=== PATIENT | female | born 1980 | race Caucasian/White ===

== ENCOUNTER 2016-06-17 17:05 | Emergency (ER) | payer BC ==
[2016-06-17 17:16] VITALS: BP 118/91
[2016-06-17] MEDS ORDERED: Sodium Chloride 0.9% 10 ML Syringe FLUSH PRN (17:49)
[2016-06-17] MEDS ORDERED: Ketorolac 30 MG/ML SDV IVPUSH ONE (17:51)
[2016-06-17] MEDS ORDERED: Sodium Chloride 0.9% 1,000 ML IV ONE (17:51)
[2016-06-17] MEDS ORDERED: Ondansetron 4 MG/2 ML SDV IVPUSH ONE (17:52)
--- NOTE | 2016-06-17 18:09 | EDM.PDOC ---
ED HPI RENAL/ - General Chief Complaint: Abdominal Pain Stated Complaint: ABD PAIN Time Seen by Provider: 06/17/16 17:37 Source of Information: Reports: Patient History Limitations: Reports: No limitations - History of Present Illness INITIAL COMMENTS - FREE TEXT/NARRATIVE: Presents for evaluation and treatments of dysuria and hematuria. Patient reports that she has been experiencing dysuria for the last week. She states that she has not been able to get in to be seen for this. She reports today she developed lower abdominal cramping across her lower abdomen. Patient reports associated symptoms of low back pain, pruritus, malaise, abdominal bloating, hematuria, chills and nausea. Patient reports that the abdominal pain comes and goes. She states that right now as an 8/10. At Its worst it is 10 out of 10. She is not taking anything for the pain. Patient reports that she has been straining her urine since 2 PM. She has had any kidney stones in the past. Reports her symptoms today feel similar. Denies any fevers, vomiting or abnormal vaginal discharge. Patient reports that her last bowel movement was today. She denies melena any or hematochezia. She reports her last menstrual period was June 07, 2016. Location: Reports: RLQ, LLQ Quality: Reports: cramping Associated Symptoms: Reports: dysuria, blood in urine, abdominal pain, nausea/ vomiting. Denies: vaginal discharge, constipation, diarrhea, bloody stools - Related Data Allergies/ADRs: Allergies Allergy/AdvReac Type Severity Reaction Status Date / Time No Known Allergies Allergy Verified 06/17/16 17:16 Home Meds: Home Meds Hydrochlorothiazide [Hydrochlorothiazide] 12.5 mg PO DAILY 06/17/16 [History] Magnesium Chloride [Mag-64] 0 mg PO BID 06/17/16 [History] Magnesium Citrate [Citroma] 296 ml PO ASDIRECTED #1 bottle 06/17/16 [Rx] Potassium Citrate [Potassium Citrate] 1,080 mg PO BID 06/17/16 [History] Triamcinolone Acetonide [Kenalog 0.1% Crm] 1 applic TOP ASDIRECTED PRN 06/17/16 [History] Past Medical History - Past Health History Medical/Surgical History: Denies Medical/Surgical History Genitourinary History: Reports: Renal calculus - Past Surgical History HEENT Surgical History: Reports: Adenoidectomy, Tonsillectomy GI Surgical History: Reports: Hernia, abdominal Female Surgical History: Reports: section Social & Family History - Family History Family Medical History: Noncontributory - Tobacco Use Smoking Status *Q: Never Smoker ED ROS GENERAL - Review of Systems Review Of Systems: See Below Constitutional: Reports: chills, malaise. Denies: fever GI/Abdominal: Reports: Abdominal pain (lower abdominal cramping), Nausea, Other (reports abdominal bloating). Denies: Constipation, Diarrhea, Hematochezia, Melena, Vomiting : Reports: dysuria, hematuria Musculoskeletal: Reports: back pain (lower back right ) Skin: Reports: pruritis Neurological: Reports: Dizziness ED EXAM, RENAL/ - Physical Exam Exam: See Below Exam Limited By: No limitations General Appearance: alert, WD/WN, no apparent distress Respiratory/Chest: no respiratory distress, lungs clear, normal breath sounds Cardiovascular: normal peripheral pulses, regular rate, rhythm, no murmur GI/Abdominal: normal bowel sounds, soft, tender (right and left lower quadrants ), other (negative psoas and obturator signs) Back Exam: normal inspection, CVA tenderness (R) Neurological: alert, oriented, normal cognition Psychiatric: normal affect, normal mood Skin Exam: Warm, Dry Course - Vital Signs Last Recorded V/S: Last Vital Signs Temp 36.6 C 06/17/16 17:13 Pulse 90 06/17/16 17:13 Resp 18 06/17/16 17:13 BP 118/91 H 06/17/16 17:13 Pulse Ox 100 06/17/16 17:13 Orthostatic Blood Pressure [ 115/82 Standing] Orthostatic Blood Pressure [ 110/83 Sitting] Orthostatic Blood Pressure [ 113/81 Supine] - Orders/Labs/Meds Labs: Laboratory Tests 06/17/16 06/17/16 06/17/16 Range/Units 17:20 17:20 18:28 WBC 11.31 H (3.98-10.04) K/mm3 RBC 4.68 (3.98-5.22) M/mm3 Hgb 13.4 (11.2-15.7) gm/L Hct 39.8 (34.1-44.9) % MCV 85.0 (79.4-94.8) fl MCH 28.6 (25.6-32.2) pg MCHC 33.7 (32.2-35.5) g/dl RDW Std Deviation 40.8 (36.4-46.3) fL Plt Count 276 (182-369) K/mm3 MPV 10.4 (9.4-12.3) fl Neut % (Auto) 69.6 (34.0-71.1) % Lymph % (Auto) 19.5 (19.3-51.7) % Menard % (Auto) 8.0 (4.7-12.5) % Eos % (Auto) 2.3 (0.7-5.8) Baso % (Auto) 0.4 (0.1-1.2) % Neut # (Auto) 7.87 H (1.56-6.13) K/mm3 Lymph # (Auto) 2.21 (1.18-3.74) K/mm3 Menard # (Auto) 0.91 H (0.24-0.36) K/mm3 Eos # (Auto) 0.26 (0.04-0.36) K/mm3 Baso # (Auto) 0.04 (0.01-0.08) K/mm3 Sodium (136-145) mEq/L Potassium (3.5-5.1) mEq/L Chloride (98-107) mEq/L Carbon Dioxide (21-32) mEq/L Anion Gap (5-15) BUN (7-18) mg/dL Creatinine (0.55-1.02) mg/dL Est Cr Clr Drug Dosing mL/min Estimated GFR (MDRD) (>60) mL/min BUN/Creatinine Ratio (14-18) Glucose (74-106) mg/dL Calcium (8.5-10.1) mg/dL Total Bilirubin (0.2-1.0) mg/dL AST (15-37) U/L ALT (14-59) U/L Alkaline Phosphatase (46-116) U/L C-Reactive Protein (<1.0) mg/dL Total Protein (6.4-8.2) g/dl Albumin (3.4-5.0) g/dl Globulin gm/dL Albumin/Globulin Ratio (1-2) Urine Color Colorless L (Yellow) Urine Appearance Clear (Clear) Urine pH 6.5 (5.0-8.0) Ur Specific [place] 1.010 (1.005-1.030) Urine Protein Negative (Negative) Urine Glucose (UA) Negative (Negative) Urine Ketones Negative (Negative) Urine Occult Blood Negative (Negative) Urine Nitrite Negative (Negative) Urine Bilirubin Negative (Negative) Urine Urobilinogen 0.2 (0.2-1.0) Ur Leukocyte Esterase Negative (Negative) Urine RBC Not seen (0-5) /hpf Urine WBC Not seen (0-5) /hpf Ur Epithelial Cells Not Reportable Ur Squamous Epith Cells 0-5 (0-5) /hpf Urine Bacteria Rare (FEW) /hpf Urine Mucus Not seen (FEW) /hpf Urine HCG, Qual Negative (NEGATIVE) 06/17/16 Range/Units 18:28 WBC (3.98-10.04) K/mm3 RBC (3.98-5.22) M/mm3 Hgb (11.2-15.7) gm/L Hct (34.1-44.9) % MCV (79.4-94.8) fl MCH (25.6-32.2) pg MCHC (32.2-35.5) g/dl RDW Std Deviation (36.4-46.3) fL Plt Count (182-369) K/mm3 MPV (9.4-12.3) fl Neut % (Auto) (34.0-71.1) % Lymph % (Auto) (19.3-51.7) % Menard % (Auto) (4.7-12.5) % Eos % (Auto) (0.7-5.8) Baso % (Auto) (0.1-1.2) % Neut # (Auto) (1.56-6.13) K/mm3 Lymph # (Auto) (1.18-3.74) K/mm3 Menard # (Auto) (0.24-0.36) K/mm3 Eos # (Auto) (0.04-0.36) K/mm3 Baso # (Auto) (0.01-0.08) K/mm3 Sodium 134 L (136-145) mEq/L Potassium 3.6 (3.5-5.1) mEq/L Chloride 99 (98-107) mEq/L Carbon Dioxide 27 (21-32) mEq/L Anion Gap 11.6 (5-15) BUN 12 (7-18) mg/dL Creatinine 0.8 (0.55-1.02) mg/dL Est Cr Clr Drug Dosing 91.88 mL/min Estimated GFR (MDRD) > 60 (>60) mL/min BUN/Creatinine Ratio 15.0 (14-18) Glucose 99 (74-106) mg/dL Calcium 8.3 L (8.5-10.1) mg/dL Total Bilirubin 0.7 (0.2-1.0) mg/dL AST 15 (15-37) U/L ALT 40 (14-59) U/L Alkaline Phosphatase 66 (46-116) U/L C-Reactive Protein < 0.2 (<1.0) mg/dL Total Protein 7.2 (6.4-8.2) g/dl Albumin 3.8 (3.4-5.0) g/dl Globulin 3.4 gm/dL Albumin/Globulin Ratio 1.1 (1-2) Urine Color (Yellow) Urine Appearance (Clear) Urine pH (5.0-8.0) Ur Specific [place] (1.005-1.030) Urine Protein (Negative) Urine Glucose (UA) (Negative) Urine Ketones (Negative) Urine Occult Blood (Negative) Urine Nitrite (Negative) Urine Bilirubin (Negative) Urine Urobilinogen (0.2-1.0) Ur Leukocyte Esterase (Negative) Urine RBC (0-5) /hpf Urine WBC (0-5) /hpf Ur Epithelial Cells Ur Squamous Epith Cells (0-5) /hpf Urine Bacteria (FEW) /hpf Urine Mucus (FEW) /hpf Urine HCG, Qual (NEGATIVE) Meds: Medications Discontinued Medications Generic Name Dose Route Start Last Admin Trade Name Freq PRN Reason Stop Dose Admin Sodium Chloride 1,000 mls @ 999 mls/hr 06/17/16 17:51 06/17/16 18:35 Normal Saline IV 06/17/16 18:51 999 mls/hr ONETIME ONE Administration Ketorolac Tromethamine 30 mg 06/17/16 17:51 06/17/16 18:32 Toradol IVPUSH 06/17/16 17:52 30 mg ONETIME ONE Administration Ondansetron HCl 4 mg 06/17/16 17:52 06/17/16 18:27 Zofran IVPUSH 06/17/16 17:53 4 mg ONETIME ONE Administration Sodium Chloride 10 ml 06/17/16 17:49 06/17/16 18:25 Saline Flush FLUSH 10 ml ASDIRECTED PRN Administration Keep Vein Open - Radiology Interpretation Free Text/Narrative:: Ct of the abdomen and pelvis without contrast impression per Dr. Luna 1. Slight increased stool within the colon. 2. Several small nonobstructing calculi within both kidneys, more numerous on the right side. 3. No ureteral dilation artery also is seen. 4. Nothing acute is identified on noncontrast CT of the abdomen and pelvis. CT Results Date: 06/17/16 - Re-Assessments/Exams Free Text/Narrative Re-Assessment/Exam: 06/17/16 20:02 Labs returned. White blood cell count of 11.3 hgb is 13.4 and platelets are 276. CRP is less than 0.2. HCG is negative. Sodium was 134, potassium 3.6 and chloride is 99. Anion gap is 11.6. UA is negative for leukocytes, nitrites, glucose, ketones and blood. I reviewed the labs and imaging with the patient. Will treat her constipation with a bottle of citroma. Followup with your primary care provider if her symptoms persist after the Citroma. Will discharge home. Discharge instructions as documented. Departure - Departure Time of Disposition: 20:09 Disposition: Home, Self-Care 01 Condition: good Clinical Impression: Constipation Prescriptions: Magnesium Citrate [Citroma] 296 ml PO ASDIRECTED #1 bottle Instructions: Constipation, Adult Referrals: Blake Johnson MD [Primary Care Provider] - Forms: ED Department Discharge Additional Instructions: Drink plenty of fluids. OTC tylenol or motrin as needed for pain. Tomorrow, drink one bottle of mag citrate over 1-2 hours for a bowel clean out. May start miralax daily to every other day as needed for bowel maintenance. You should have 1-3 bowel movements every day to every 3 days. Follow-up with PCP if not better this week. Please return to the ER should your symptoms change or worsen.
--- NOTE | 2016-06-17 18:59 | CT ---
CT abdomen and pelvis Technique: Multiple axial sections were obtained from above the dome of the diaphragm inferiorly through the pubic symphysis. Intravenous and oral contrast was not utilized. Study performed as a ureteral stone protocol. Findings: Visualized lung bases are clear. Noncontrast appearance of the liver and spleen appears within normal limits. Multiple small nonobstructing calculi are seen within the right kidney. Left kidney shows several minimal nonobstructing calculi. No ureteral dilatation or ureteral stone is identified. Adrenal glands show no nodule. Pancreas appears within normal limits. Gallbladder shows no gallstones. Aorta shows no aneurysmal dilatation. No retroperitoneal adenopathy or mesenteric abnormalities are seen. Mild increased stool is seen within the colon. Appendix is only equivocally seen but no inflammatory change is seen within the right lower abdomen. No free fluid is seen. No bowel dilatation is seen. Impression: 1. Slight increased stool within the colon. 2. Several small nonobstructing calculi within both kidneys, more numerous on the right side. 3. No ureteral dilatation or ureteral stone is seen. 4. Nothing acute is identified on noncontrast CT study of the abdomen and pelvis. Diagnostic code #2
== END 2016-06-17 20:15 | disposition home or self-care (01) ==
LOC: JD.ED 17:05
DX: K59.00 Constipation, unspecified (principal); Z98.890 Other specified postprocedural states; Z79.899 Other long term (current) drug therapy
CPT/HCPCS: 36415; 74176; 80053; 81001; 81025; 85025; 86140; 96361; 96374; 96375; 99284; J1885; J2405; J7040; J7050

== ENCOUNTER 2020-09-02 19:39 | Emergency (ER) | payer BC ==
[2020-09-02 19:48] VITALS: BP 130/74; PULSE 93
[2020-09-02] MEDS ORDERED: Meclizine 12.5 MG Tab PO ONE (20:26)
[2020-09-02] MEDS ORDERED: Amoxicillin 500 MG Cap PO ONE (20:26)
--- NOTE | 2020-09-02 20:39 | EDM.PDOC ---
ED HPI GENERAL MEDICAL PROBLEM - General Chief Complaint: ENT Problem Stated Complaint: VIRTICAL, MAY HAVE EAR INFECTION ALSO Time Seen by Provider: 09/02/20 20:09 Source of Information: Reports: Patient, RN Notes Reviewed - History of Present Illness INITIAL COMMENTS - FREE TEXT/NARRATIVE: Has been having some R ear pressure discomfort for many days worse today. Has had some vertigo off and on for quite awhile also worse today. Did have some mild nausea, gone, no vomiting. Did get real lightheaded also this evening but that also did resolve. Mild nasal and sins pancho. Hx of what sounds like mild seasonal allergies. Has not been otherwise recently ill. 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: Reports: Musculoskeletal History: Reports: Other (See Below) Other Musculoskeletal History: r wrist surgery, varicous veins Psychiatric History: Reports: Anxiety - Past Surgical History HEENT Surgical History: Reports: Adenoidectomy, Tonsillectomy GI Surgical History: Reports: Hernia, Abdominal Female Surgical History: Reports: Breast Reduction, Section, Other (See Below) Other Female Surgeries/Procedures: tummy tuck Social & Family History - Family History Family Medical History: No Pertinent Family History - Tobacco Use Tobacco Use Status *Q: Never Tobacco User Second Hand Smoke Exposure: No - Caffeine Use Caffeine Use: Reports: Coffee - Recreational Drug Use Recreational Drug Use: No ED ROS ENT - Review of Systems Review Of Systems: See Below Constitutional: Denies: Fever, Chills, Diaphoresis HEENT: Reports: Ear Pain. Denies: Ear Discharge, Throat Pain Respiratory: Denies: Cough Cardiovascular: Denies: Chest Pain GI/Abdominal: Reports: Nausea. Denies: Abdominal Pain, Vomiting Musculoskeletal: Reports: No Symptoms Neurological: Reports: Dizziness ED EXAM, ENT - Physical Exam Exam: See Below General Appearance: Alert, No Apparent Distress Eye Exam: Bilateral Eye: PERRL, Other (no nystagmus at time of exam) Ears: Normal External Exam, Normal Canal, TM Bulging, TM Fluid (bilat R greater than L) Nose: Normal Inspection Mouth/Throat: Normal Inspection Head: Atraumatic Neck: Supple, Full Range of Motion Respiratory/Chest: No Respiratory Distress, Lungs Clear, Normal Breath Sounds Cardiovascular: Regular Rate, Rhythm Neurological: Alert, Oriented, No Motor/Sensory Deficits Skin: Warm, Dry, Normal Color Course - Vital Signs Last Recorded V/S: Last Vital Signs Temp 98.0 F 09/02/20 19:47 Pulse 93 09/02/20 19:47 Resp 18 09/02/20 19:47 BP 130/74 09/02/20 19:47 Pulse Ox 100 09/02/20 19:47 - Orders/Labs/Meds Meds: Medications Discontinued Medications Generic Name Dose Route Start Last Admin Trade Name Laloq PRN Reason Stop Dose Admin Amoxicillin 500 mg 09/02/20 20:26 09/02/20 20:33 Amoxicillin 500 Mg Cap PO 09/02/20 20:27 500 mg ONETIME ONE Administration Meclizine HCl 12.5 mg 09/02/20 20:26 09/02/20 20:33 Meclizine 12.5 Mg Tab PO 09/02/20 20:27 12.5 mg ONETIME ONE Administration Departure - Departure Time of Disposition: 20:35 Disposition: Home, Self-Care 01 Condition: Fair Clinical Impression: Vertigo Serous otitis media Qualifiers: Chronicity: acute Laterality: right Recurrence: not specified as recurrent Qualified Code(s): H65.01 - Acute serous otitis media, right ear - Discharge Information Prescriptions: Amoxicillin 500 mg PO Q8HR #20 capsule Instructions: Vertigo, [id number], Otitis Media, Adult, [id number] Referrals: Balke Johnson MD [Primary Care Provider] - Forms: ED Department Discharge Additional Instructions: Amoxicillin 500 mg 3 times daily. [facility] so you can pick that up in the morning. Antivert (meclizine) 12.5 mg twice daily until vertigo resolves. You can buy that OTC but will need to ask pharmacist for that. Claritin 10 mg daily. See your regular medical provider in about 1 week. Return to ED as needed if symptoms worsening in any way. Sepsis Event Note (ED) - Evaluation Sepsis Screening Result: No Definite Risk - Focused Exam Vital Signs: Vital Signs Temp Pulse Resp BP Pulse Ox 09/02/20 19:47 98.0 F 93 18 130/74 100
== END 2020-09-02 20:50 | disposition home or self-care (01) ==
LOC: JD.ED 19:39
DX: R42 Dizziness and giddiness (principal); H65.01 Acute serous otitis media, right ear
CPT/HCPCS: 99283; A9270

== ENCOUNTER 2021-07-13 03:26 | Emergency (ER) | payer BC ==
[2021-07-13 04:00] VITALS: BP 135/96; PULSE 105
[2021-07-13] MEDS ORDERED: Ketorolac 15 MG/ML SDV IVPUSH ONE (04:11)
[2021-07-13] MEDS ORDERED: Sodium Chloride 0.9% 1,000 ML IV ONE (04:38)
== END 2021-07-13 06:02 | disposition home or self-care (01) ==
LOC: JD.ED 03:26
DX: N20.0 Calculus of kidney (principal)
CPT/HCPCS: 36415; 80053; 81001; 83690; 85025; 96374; 99284; J1885; J7030

== ENCOUNTER 2021-07-19 12:42 | Emergency (ER) | payer BC ==
[2021-07-19] MEDS ORDERED: Sodium Chloride 0.9% 10 ML Syringe FLUSH PRN ×2 (14:37→17:39)
[2021-07-19] MEDS ORDERED: Sodium Chloride 0.9% 1,000 ML IV STA (15:01)
[2021-07-19] MEDS ORDERED: Iopamidol 612 MG/ML 100 ML Bottle IVPUSH ONE (17:39)
[2021-07-19 18:56] VITALS: BP 102/78; PULSE 88
== END 2021-07-19 18:56 | disposition home or self-care (01) ==
LOC: JD.ED 12:42
DX: R10.11 Right upper quadrant pain (principal); R10.13 Epigastric pain
CPT/HCPCS: 36415; 74177; 76705; 80053; 81001; 82977; 83690; 84703; 85025; 86140; 99284; J3490; J7030; Q9967

== ENCOUNTER 2022-12-25 19:27 | Emergency (ER) | payer BC ==
[2022-12-25 20:35] LABS: BASOPHILS ABSOLUTE AUTO 0.1 K/mm3 (0.0-0.2); BASOPHILS PERCENT AUTO 0.6 % (0.0-1.0); EOSINOPHILS ABSOLUTE AUTO 0.2 K/mm3 (0.0-0.4); EOSINOPHILS PERCENT AUTO 2.4 % (0.0-6.0); HEMATOCRIT 42.2 % (37.0-47.0); IMMATURE GRAN ABSOLUTE AUTO 0.04 K/mm3 (0.00-0.05); IMMATURE GRAN PERCENT AUTO 0.4 % (0.0-0.4); LYMPHOCYTES ABSOLUTE AUTO 2.1 K/mm3 (1.0-4.8); LYMPHOCYTES PERCENT AUTO 22.6 % (24.0-44.0); MEAN CORPUSCULAR HEMOGLOBIN 28.5 pg (28.0-32.0); MEAN CORPUSCULAR HGB CONC 33.2 g/dl (32.0-36.0); MEAN CORPUSCULAR VOLUME 85.8 fl (83.0-99.0); MEAN PLATELET VOLUME 10.2 fl (9.4-12.3); MONOCYTES ABSOLUTE AUTO 0.7 K/mm3 (0.0-0.8); MONOCYTES PERCENT AUTO 7.3 % (0.0-8.0); NEUTROPHILS ABSOLUTE AUTO 6.3 K/mm3 (1.8-7.7); NEUTROPHILS PERCENT AUTO 66.7 % (41.0-71.0); PLATELET COUNT,PLT 320 K/mm3 (150-400); RED BLOOD CELL COUNT 4.92 M/mm3 (4.10-5.30); WHITE BLOOD CELL COUNT,WBC 9.43 K/mm3 (3.9-11.3)
[2022-12-25 21:04] LABS: ALBUMIN 3.7 g/dl (3.4-5.0); ANION GAP 14.5 (5-15); BILIRUBIN TOTAL 0.8 mg/dL (0.2-1.0); EST CRCL DRUG DOSING (CG) 68.61 mL/min; POTASSIUM,K 3.5 mEq/L (3.5-5.1); PROTEIN TOTAL,TP 7.3 g/dl (6.4-8.2)
[2022-12-25 21:18] LABS: APPEARANCE,URINE CLEAR (Clear); BILIRUBIN,URINE NEGATIVE (Negative); COLOR,URINE YELLOW (Yellow); GLUCOSE,URINE NEGATIVE (Negative); KETONES,URINE NEGATIVE (Negative); LEUKOCYTE ESTERASE,URINE NEGATIVE (Negative); NITRITE,URINE NEGATIVE (Negative); OCCULT BLOOD,URINE NEGATIVE (Negative); PH,URINE 5.5 (5.0-8.0); PROTEIN,URINE 1+ (Negative); UROBILINOGEN,URINE 0.2 (0.2-1.0)
[2022-12-25 21:40] LABS: BACTERIA,URINE MANY /hpf (FEW); CALCIUM OXALATE CRYSTALS,URINE RARE; MUCUS,URINE MANY /hpf (FEW); RBC,URINE 0-5 /hpf (0-5); WBC,URINE 0-5 /hpf (0-5)
[2022-12-25] MEDS ORDERED: Morphine 2 MG/ML SYRINGE IVPUSH ONE (22:00)
[2022-12-25 22:25] LABS: CORONAVIRUS COVID-19 NAA NEGATIVE (NEGATIVE); INFLUENZA A NAA NEGATIVE (NEGATIVE); RESPIRATORY SYNCYTIAL VIR NAA NEGATIVE (NEGATIVE)
== END 2022-12-25 22:35 | disposition home or self-care (01) ==
LOC: MERGE 19:27 → JD.ED 19:27
DX: R10.30 Lower abdominal pain, unspecified (principal); Z91.041 Radiographic dye allergy status; Z91.09 Other allergy status, other than to drugs and biological substances; Z20.822 Contact with and (suspected) exposure to COVID-19
CPT/HCPCS: 0241U; 36415; 76705; 80053; 81001; 84484; 84703; 85025; 96374; 99284; J2270

== ENCOUNTER 2023-03-11 23:46 | Emergency (ER) | payer BC ==
[2023-03-12] MEDS ORDERED: Sodium Chloride 0.9% 10 ML Syringe FLUSH PRN (00:20)
[2023-03-12 00:33] LABS: BASOPHILS ABSOLUTE AUTO 0.1 K/mm3 (0.0-0.2); BASOPHILS PERCENT AUTO 0.6 % (0.0-1.0); EOSINOPHILS ABSOLUTE AUTO 0.4 K/mm3 (0.0-0.4); EOSINOPHILS PERCENT AUTO 3.9 % (0.0-6.0); HEMATOCRIT 45.1 % (37.0-47.0); IMMATURE GRAN ABSOLUTE AUTO 0.04 K/mm3 (0.00-0.05); IMMATURE GRAN PERCENT AUTO 0.4 % (0.0-0.4); LYMPHOCYTES ABSOLUTE AUTO 3.2 K/mm3 (1.0-4.8); LYMPHOCYTES PERCENT AUTO 28.6 % (24.0-44.0); MEAN CORPUSCULAR HEMOGLOBIN 28.7 pg (28.0-32.0); MEAN CORPUSCULAR HGB CONC 33.3 g/dl (32.0-36.0); MEAN CORPUSCULAR VOLUME 86.2 fl (83.0-99.0); MONOCYTES ABSOLUTE AUTO 0.9 K/mm3 (0.0-0.8); MONOCYTES PERCENT AUTO 8.1 % (0.0-8.0); NEUTROPHILS ABSOLUTE AUTO 6.5 K/mm3 (1.8-7.7); NEUTROPHILS PERCENT AUTO 58.4 % (41.0-71.0); PLATELET COUNT,PLT 330 K/mm3 (150-400); RED BLOOD CELL COUNT 5.23 M/mm3 (4.10-5.30); WHITE BLOOD CELL COUNT,WBC 11.09 K/mm3 (3.9-11.3)
[2023-03-12 01:02] LABS: A/G RATIO 0.9 (1-2); ALANINE AMINOTRANSFERASE,ALT 14 U/L (14-59); ALBUMIN 3.8 g/dl (3.4-5.0); ALKALINE PHOSPHATASE 77 U/L (46-116); ASPARTATE AMNIOTRANSFERASE,AST 13 U/L (15-37); BILIRUBIN TOTAL 0.5 mg/dL (0.2-1.0); BLOOD UREA NITROGEN,BUN 18 mg/dL (7-18); BUN/CREATININE RATIO 13.8 (14-18); CARBON DIOXIDE,CO2 28 mEq/L (21-32); CHLORIDE,CL 101 mEq/L (98-107); CREATININE 1.3 mg/dL (0.55-1.02); ESTIMATED GFR 53 mL/min (>60); GLUCOSE RANDOM 109 mg/dL (70-99); PROTEIN TOTAL,TP 7.9 g/dl (6.4-8.2); SODIUM,NA 139 mEq/L (136-145)
[2023-03-12 01:11] LABS: APPEARANCE,URINE CLEAR (Clear); BILIRUBIN,URINE NEGATIVE (Negative); COLOR,URINE YELLOW (Yellow); GLUCOSE,URINE NEGATIVE (Negative); KETONES,URINE NEGATIVE (Negative); LEUKOCYTE ESTERASE,URINE NEGATIVE (Negative); NITRITE,URINE NEGATIVE (Negative); OCCULT BLOOD,URINE NEGATIVE (Negative); PROTEIN,URINE NEGATIVE (Negative); UROBILINOGEN,URINE 0.2 (0.2-1.0)
[2023-03-12] MEDS ORDERED: Ketorolac 30 MG/ML SDV IVPUSH ONE (01:29)
[2023-03-12] MEDS ORDERED: Iopamidol 612 MG/ML 100 ML Bottle IVPUSH ONE (01:40)
[2023-03-12] MEDS ORDERED: Magnesium Citrate Solution 296 ML Bottle PO ONE (03:07)
[2023-03-12] MEDS ORDERED: Bisacodyl 5 MG Tab PO STA (03:07)
== END 2023-03-12 03:20 | disposition home or self-care (01) ==
LOC: JD.ED 23:46
DX: K59.00 Constipation, unspecified (principal); Z91.048 Other nonmedicinal substance allergy status
CPT/HCPCS: 36415; 74177; 80053; 81003; 81025; 85025; 96374; 99284; A9270; J1885; J3490; Q9967